=== PATIENT | male | born 1955 | race Caucasian/White ===

== ENCOUNTER 2017-03-09 19:30 | Observation (INO) | payer OTHER ==
--- NOTE | 2017-03-09 19:34 | EDPHY ---
H & P HPI/ROS: CHIEF COMPLAINT: Stroke Alert HISTORY OF PRESENT ILLNESS: The patient is a 61 year old male with history of diabetes and prior aortic valve replacement, presents via EMS as a stroke alert. The patient states he developed a headache while sitting at the computer around 3:30pm. The headache was severe and throbbing, started gradually and is localized to the left frontal region. Around 6:30pm he developed expressive aphasia. He reports difficulty with word finding and states this lasted for about 1 hour before resolving. He denies unilateral weakness. No visual changes. The patient had 1 alcoholic beverage tonight. No prior history of migraine headaches or CVA. Vitals in the field showed BP: 160/98, HR: 60, BGL: 170. REVIEW OF SYSTEMS: A comprehensive 10 point review of systems is otherwise negative aside from elements mentioned in the history of present illness. Past Medical/Surgical History: Aortic valve replacement in 2016. Hypertension, Type II DM. Social History: . Physical Exam: General Appearance: Alert, pleasant Eyes: Pupils equal and round, no conjunctival pallor or injection ENT, Mouth: Mucous membranes moist Neck: Normal inspection, no bruit Respiratory: Lungs are clear to auscultation Cardiovascular: Regular rate and rhythm, no murmur Gastrointestinal: Abdomen is soft and non-tender Neurological: Alert, oriented x3, cranial nerves II through XII intact, motor 5 /5, sensory intact to light touch, gait not assessed Skin: Warm and dry, no rash Extremities: Nontender, no pedal edema Psychiatric: Mood and affect normal Constitutional: Initial Vital Signs Temperature (C) 36.3 C 03/09/17 19:41 Heart Rate 70 03/09/17 19:41 Respiratory Rate 18 03/09/17 19:41 Blood Pressure 149/117 H 03/09/17 19:41 O2 Sat (%) 95 03/09/17 19:41 O2 Delivery Mode Room Air Allergies/Adverse Reactions: No Known Allergies Allergy (Unverified 03/09/17 19:56) Home Medications: Medication Instructions Recorded Atorvastatin Calcium [Lipitor 80 80 mg PO DAILY 03/09/17 mg] Cholecalciferol Vit D3 [Vitamin D3 500 units PO DAILY 03/09/17 (*)] Citalopram [CeleXA 20 MG] 20 mg PO DAILY 03/09/17 Cyanocobalamin [Vitamin B12 (*)] 1,000 mcg PO DAILY 03/09/17 Fluticasone Propionate [Flonase 2 sprays EACHNARE DAILY 03/09/17 Allergy Relief] Omeprazole [Prilosec 20 mg] 20 mg PO DAILY 03/09/17 metFORMIN HCL [Glucophage 1000 mg] 1,000 mg PO BIDMEAL 03/09/17 Clopidogrel Bisulfate [Plavix] 75 mg PO DAILY #30 tablet 03/10/17 Medical Decision Making - Diagnostics EKG Interpretation: EKG interpreted by me reveals normal sinus rhythm, normal axis, normal intervals , Nonspecific T abnormalities. Interpretation: abnormal EKG Imaging: Discussed imaging studies w/ scallop raker Radiologist ED Course/Re-evaluation: Patient presents as stroke alert. The patient developed gradual onset of left sided headache around 3:30 p.m. Around 6:30 p.m. the patient developed expressive aphasia that lasted for 1 hour. I met EMS on arrival and assessed the patient. No neurological deficits visualized. The patient has a negative head CT. He continues to have a left sided headache that has improved from an 8/ 10 to 5/10. He had gradual onset of headache, I do not suspect subarachnoid hemorrhage in this patient. The differential in this patient is TIA versus migraine headache. Given the risk factors for TIA, I will admit him for further evaluation. Aspirin 325 mg orally given. Repeat neurologic exam is normal and unchanged. groundwater monitoring technician revealed normal sinus rhythm throughout. Based on acute symptoms and family history, I recommend the patient be admitted for further observation. The patient and his agree with this plan. The hospitalist service was consulted for admission. Dr. Smith accepts the patient for admission. Differential Diagnosis: Headache including but not limited to CVA, TIA, subarachnoid hemorrhage, migraine headache, tension headache and infectious causes such as meningitis, pharyngitis and sinusitis. - Data Points Laboratory Results: Laboratory Results 03/09/17 19:40 03/09/17 19:40 Medications Given: Discontinued Medications Aspirin (Aspirin) 325 mg PO EDNOW ONE Stop: 03/09/17 19:54 Last Admin: 03/09/17 20:03 Dose: 325 mg Aspirin Buffered (Aspirin Ec) 81 mg PO DAILY [facility] Stop: 09/06/17 08:59 Last Admin: 03/10/17 09:44 Dose: 81 mg Atorvastatin Calcium (Lipitor) 80 mg PO DAILY [facility] Stop: 09/06/17 08:59 Last Admin: 03/10/17 09:44 Dose: 80 mg Citalopram Hydrobromide (Celexa) 20 mg PO DAILY [facility] Stop: 09/06/17 08:59 Last Admin: 03/10/17 09:44 Dose: 20 mg Fluticasone Propionate (Flonase Nasal [place]) 2 sprays EACHNARE DAILY [facility] Stop: 09/06/17 08:59 Last Admin: 03/10/17 09:45 Dose: Not Given Influenza Virus Vaccine Quadrival (Fluarix Quad [id number]) 0.5 ml IM .ONCE ONE Stop: 03/10/17 13:44 Last Admin: 03/10/17 14:00 Dose: 0.5 ml Metformin HCl (Glucophage) 1,000 mg PO BIDMEAL [facility] Stop: 09/06/17 07:59 Last Admin: 03/10/17 09:44 Dose: 1,000 mg Pantoprazole Sodium (Protonix) 40 mg PO DAILY [facility] Stop: 09/06/17 08:59 Last Admin: 03/10/17 09:45 Dose: 40 mg Departure - Departure Disposition: [facility] Inpatient Acute Clinical Impression: TIA (transient ischemic attack) Qualifiers: Transient cerebral ischemia type: unspecified Qualified Code(s): G45.9 - Transient cerebral ischemic attack, unspecified Condition: Good Report Scribed for: Patricia Hanley Report Scribed by: Avani Menendez Date of Report: 03/09/17 Time of Report: 19:34 Physician Review and Approval Statement: 03/09/17 19:34 Portions of this note were transcribed by a director medical writing. I personally performed the history, physical exam, and medical decision-making; and confirmed the accuracy of the information in the transcribed note.
--- NOTE | 2017-03-09 19:34 | EDPHY ---
H & P HPI/ROS: CHIEF COMPLAINT: Stroke Alert HISTORY OF PRESENT ILLNESS: The patient is a 61 year old male with history of diabetes and prior aortic valve replacement, presents via EMS as a stroke alert. The patient states he developed a headache while sitting at the computer around 3:30pm. The headache was severe and throbbing, started gradually and is localized to the left frontal region. Around 6:30pm he developed expressive aphasia. He reports difficulty with word finding and states this lasted for about 1 hour before resolving. He denies unilateral weakness. No visual changes. The patient had 1 alcoholic beverage tonight. No prior history of migraine headaches or CVA. Vitals in the field showed BP: 160/98, HR: 60, BGL: 170. REVIEW OF SYSTEMS: A comprehensive 10 point review of systems is otherwise negative aside from elements mentioned in the history of present illness. Past Medical/Surgical History: Aortic valve replacement in 2016. Hypertension, Type II DM. Social History: . Physical Exam: General Appearance: Alert, pleasant Eyes: Pupils equal and round, no conjunctival pallor or injection ENT, Mouth: Mucous membranes moist Neck: Normal inspection, no bruit Respiratory: Lungs are clear to auscultation Cardiovascular: Regular rate and rhythm, no murmur Gastrointestinal: Abdomen is soft and non-tender Neurological: Alert, oriented x3, cranial nerves II through XII intact, motor 5 /5, sensory intact to light touch, gait not assessed Skin: Warm and dry, no rash Extremities: Nontender, no pedal edema Psychiatric: Mood and affect normal Constitutional: Initial Vital Signs Temperature (C) 36.3 C 03/09/17 19:41 Heart Rate 70 03/09/17 19:41 Respiratory Rate 18 03/09/17 19:41 Blood Pressure 149/117 H 03/09/17 19:41 O2 Sat (%) 95 03/09/17 19:41 O2 Delivery Mode Room Air Allergies/Adverse Reactions: No Known Allergies Allergy (Unverified 03/09/17 19:56) Home Medications: Medication Instructions Recorded Atorvastatin Calcium [Lipitor 80 80 mg PO DAILY 03/09/17 mg] Cholecalciferol Vit D3 [Vitamin D3 500 units PO DAILY 03/09/17 (*)] Citalopram [CeleXA 20 MG] 20 mg PO DAILY 03/09/17 Cyanocobalamin [Vitamin B12 (*)] 1,000 mcg PO DAILY 03/09/17 Fluticasone Propionate [Flonase 2 sprays EACHNARE DAILY 03/09/17 Allergy Relief] Omeprazole [Prilosec 20 mg] 20 mg PO DAILY 03/09/17 metFORMIN HCL [Glucophage 1000 mg] 1,000 mg PO BIDMEAL 03/09/17 Clopidogrel Bisulfate [Plavix] 75 mg PO DAILY #30 tablet 03/10/17 Medical Decision Making - Diagnostics EKG Interpretation: EKG interpreted by me reveals normal sinus rhythm, normal axis, normal intervals , Nonspecific T abnormalities. Interpretation: abnormal EKG Imaging: Discussed imaging studies w/ teacher emotionally impaired Radiologist ED Course/Re-evaluation: Patient presents as stroke alert. The patient developed gradual onset of left sided headache around 3:30 p.m. Around 6:30 p.m. the patient developed expressive aphasia that lasted for 1 hour. I met EMS on arrival and assessed the patient. No neurological deficits visualized. The patient has a negative head CT. He continues to have a left sided headache that has improved from an 8/ 10 to 5/10. He had gradual onset of headache, I do not suspect subarachnoid hemorrhage in this patient. The differential in this patient is TIA versus migraine headache. Given the risk factors for TIA, I will admit him for further evaluation. Aspirin 325 mg orally given. Repeat neurologic exam is normal and unchanged. court monitor revealed normal sinus rhythm throughout. Based on acute symptoms and family history, I recommend the patient be admitted for further observation. The patient and his agree with this plan. The hospitalist service was consulted for admission. Dr. Smith accepts the patient for admission. Differential Diagnosis: Headache including but not limited to CVA, TIA, subarachnoid hemorrhage, migraine headache, tension headache and infectious causes such as meningitis, pharyngitis and sinusitis. - Data Points Laboratory Results: Laboratory Results 03/09/17 19:40 03/09/17 19:40 Medications Given: Discontinued Medications Aspirin (Aspirin) 325 mg PO EDNOW ONE Stop: 03/09/17 19:54 Last Admin: 03/09/17 20:03 Dose: 325 mg Aspirin Buffered (Aspirin Ec) 81 mg PO DAILY [facility] Stop: 09/06/17 08:59 Last Admin: 03/10/17 09:44 Dose: 81 mg Atorvastatin Calcium (Lipitor) 80 mg PO DAILY [facility] Stop: 09/06/17 08:59 Last Admin: 03/10/17 09:44 Dose: 80 mg Citalopram Hydrobromide (Celexa) 20 mg PO DAILY [facility] Stop: 09/06/17 08:59 Last Admin: 03/10/17 09:44 Dose: 20 mg Fluticasone Propionate (Flonase Nasal [place]) 2 sprays EACHNARE DAILY [facility] Stop: 09/06/17 08:59 Last Admin: 03/10/17 09:45 Dose: Not Given Influenza Virus Vaccine Quadrival (Fluarix Quad [id number]) 0.5 ml IM .ONCE ONE Stop: 03/10/17 13:44 Last Admin: 03/10/17 14:00 Dose: 0.5 ml Metformin HCl (Glucophage) 1,000 mg PO BIDMEAL [facility] Stop: 09/06/17 07:59 Last Admin: 03/10/17 09:44 Dose: 1,000 mg Pantoprazole Sodium (Protonix) 40 mg PO DAILY [facility] Stop: 09/06/17 08:59 Last Admin: 03/10/17 09:45 Dose: 40 mg Departure - Departure Disposition: [facility] Inpatient Acute Clinical Impression: TIA (transient ischemic attack) Qualifiers: Transient cerebral ischemia type: unspecified Qualified Code(s): G45.9 - Transient cerebral ischemic attack, unspecified Condition: Good Report Scribed for: Patricia Hanley Report Scribed by: Avani Menendez Date of Report: 03/09/17 Time of Report: 19:34 Physician Review and Approval Statement: 03/09/17 19:34 Portions of this note were transcribed by a medical office scheduler. I personally performed the history, physical exam, and medical decision-making; and confirmed the accuracy of the information in the transcribed note.
--- NOTE | 2017-03-09 19:34 | EDPHY ---
H & P HPI/ROS: CHIEF COMPLAINT: Stroke Alert HISTORY OF PRESENT ILLNESS: The patient is a 61 year old male with history of diabetes and prior aortic valve replacement, presents via EMS as a stroke alert. The patient states he developed a headache while sitting at the computer around 3:30pm. The headache was severe and throbbing, started gradually and is localized to the left frontal region. Around 6:30pm he developed expressive aphasia. He reports difficulty with word finding and states this lasted for about 1 hour before resolving. He denies unilateral weakness. No visual changes. The patient had 1 alcoholic beverage tonight. No prior history of migraine headaches or CVA. Vitals in the field showed BP: 160/98, HR: 60, BGL: 170. REVIEW OF SYSTEMS: A comprehensive 10 point review of systems is otherwise negative aside from elements mentioned in the history of present illness. Past Medical/Surgical History: Aortic valve replacement in 2016. Hypertension, Type II DM. Social History: . Physical Exam: General Appearance: Alert, pleasant Eyes: Pupils equal and round, no conjunctival pallor or injection ENT, Mouth: Mucous membranes moist Neck: Normal inspection, no bruit Respiratory: Lungs are clear to auscultation Cardiovascular: Regular rate and rhythm, no murmur Gastrointestinal: Abdomen is soft and non-tender Neurological: Alert, oriented x3, cranial nerves II through XII intact, motor 5 /5, sensory intact to light touch, gait not assessed Skin: Warm and dry, no rash Extremities: Nontender, no pedal edema Psychiatric: Mood and affect normal Constitutional: Initial Vital Signs Temperature (C) 36.3 C 03/09/17 19:41 Heart Rate 70 03/09/17 19:41 Respiratory Rate 18 03/09/17 19:41 Blood Pressure 149/117 H 03/09/17 19:41 O2 Sat (%) 95 03/09/17 19:41 O2 Delivery Mode Room Air Allergies/Adverse Reactions: No Known Allergies Allergy (Unverified 03/09/17 19:56) Home Medications: Medication Instructions Recorded Atorvastatin Calcium [Lipitor 80 80 mg PO DAILY 03/09/17 mg] Cholecalciferol Vit D3 [Vitamin D3 500 units PO DAILY 03/09/17 (*)] Citalopram [CeleXA 20 MG] 20 mg PO DAILY 03/09/17 Cyanocobalamin [Vitamin B12 (*)] 1,000 mcg PO DAILY 03/09/17 Fluticasone Propionate [Flonase 2 sprays EACHNARE DAILY 03/09/17 Allergy Relief] Omeprazole [Prilosec 20 mg] 20 mg PO DAILY 03/09/17 metFORMIN HCL [Glucophage 1000 mg] 1,000 mg PO BIDMEAL 03/09/17 Clopidogrel Bisulfate [Plavix] 75 mg PO DAILY #30 tablet 03/10/17 Medical Decision Making - Diagnostics EKG Interpretation: EKG interpreted by me reveals normal sinus rhythm, normal axis, normal intervals , Nonspecific T abnormalities. Interpretation: abnormal EKG Imaging: Discussed imaging studies w/ call center associate Radiologist ED Course/Re-evaluation: Patient presents as stroke alert. The patient developed gradual onset of left sided headache around 3:30 p.m. Around 6:30 p.m. the patient developed expressive aphasia that lasted for 1 hour. I met EMS on arrival and assessed the patient. No neurological deficits visualized. The patient has a negative head CT. He continues to have a left sided headache that has improved from an 8/ 10 to 5/10. He had gradual onset of headache, I do not suspect subarachnoid hemorrhage in this patient. The differential in this patient is TIA versus migraine headache. Given the risk factors for TIA, I will admit him for further evaluation. Aspirin 325 mg orally given. Repeat neurologic exam is normal and unchanged. personnel monitor revealed normal sinus rhythm throughout. Based on acute symptoms and family history, I recommend the patient be admitted for further observation. The patient and his agree with this plan. The hospitalist service was consulted for admission. Dr. Smith accepts the patient for admission. Differential Diagnosis: Headache including but not limited to CVA, TIA, subarachnoid hemorrhage, migraine headache, tension headache and infectious causes such as meningitis, pharyngitis and sinusitis. - Data Points Laboratory Results: Laboratory Results 03/09/17 19:40 03/09/17 19:40 Medications Given: Discontinued Medications Aspirin (Aspirin) 325 mg PO EDNOW ONE Stop: 03/09/17 19:54 Last Admin: 03/09/17 20:03 Dose: 325 mg Aspirin Buffered (Aspirin Ec) 81 mg PO DAILY [facility] Stop: 09/06/17 08:59 Last Admin: 03/10/17 09:44 Dose: 81 mg Atorvastatin Calcium (Lipitor) 80 mg PO DAILY [facility] Stop: 09/06/17 08:59 Last Admin: 03/10/17 09:44 Dose: 80 mg Citalopram Hydrobromide (Celexa) 20 mg PO DAILY [facility] Stop: 09/06/17 08:59 Last Admin: 03/10/17 09:44 Dose: 20 mg Fluticasone Propionate (Flonase Nasal [place]) 2 sprays EACHNARE DAILY [facility] Stop: 09/06/17 08:59 Last Admin: 03/10/17 09:45 Dose: Not Given Influenza Virus Vaccine Quadrival (Fluarix Quad [id number]) 0.5 ml IM .ONCE ONE Stop: 03/10/17 13:44 Last Admin: 03/10/17 14:00 Dose: 0.5 ml Metformin HCl (Glucophage) 1,000 mg PO BIDMEAL [facility] Stop: 09/06/17 07:59 Last Admin: 03/10/17 09:44 Dose: 1,000 mg Pantoprazole Sodium (Protonix) 40 mg PO DAILY [facility] Stop: 09/06/17 08:59 Last Admin: 03/10/17 09:45 Dose: 40 mg Departure - Departure Disposition: [facility] Inpatient Acute Clinical Impression: TIA (transient ischemic attack) Qualifiers: Transient cerebral ischemia type: unspecified Qualified Code(s): G45.9 - Transient cerebral ischemic attack, unspecified Condition: Good Report Scribed for: Patricia Hanley Report Scribed by: Avani Menendez Date of Report: 03/09/17 Time of Report: 19:34 Physician Review and Approval Statement: 03/09/17 19:34 Portions of this note were transcribed by a remote medical coder. I personally performed the history, physical exam, and medical decision-making; and confirmed the accuracy of the information in the transcribed note.
[2017-03-09 19:49] LABS: PLATELET COUNT 202 10^3/uL (150-400)
[2017-03-09] MEDS ORDERED: ASPIRIN 81 MG CHEWABLE TAB PO ONE (19:53)
--- NOTE | 2017-03-09 19:58 | CPEKG ---
Heart Rate: 71 RR Interval: 845 P-R Interval: 168 QRSD Interval: 88 QT Interval: 416 QTC Interval: 453 P [place]: 61 QRS [place]: 37 T Wave [place]: 103 EKG Severity - ABNORMAL ECG - EKG Impression: SINUS RHYTHM EKG Impression: NONSPECIFIC T ABNORMALITIES, LATERAL LEADS Electronically Signed By: Patricia Hanley 11-Mar-2017 20:43:49
--- NOTE | 2017-03-09 19:58 | CPEKG ---
Heart Rate: 71 RR Interval: 845 P-R Interval: 168 QRSD Interval: 88 QT Interval: 416 QTC Interval: 453 P [place]: 61 QRS [place]: 37 T Wave [place]: 103 EKG Severity - ABNORMAL ECG - EKG Impression: SINUS RHYTHM EKG Impression: NONSPECIFIC T ABNORMALITIES, LATERAL LEADS Electronically Signed By: Patricia Hanley 11-Mar-2017 20:43:49
[2017-03-09] MEDS ORDERED: ONDANSETRON 4 MG/2 ML VIAL IVP PRN (21:35)
[2017-03-09] MEDS ORDERED: ACETAMINOPHEN 325 MG TAB PO PRN (21:35)
[2017-03-09] MEDS ORDERED: ONDANSETRON DISINTEGRATING 4 MG TAB PO PRN (21:35)
--- NOTE | 2017-03-10 00:19 | GHP ---
[f rep st] HISTORY AND PHYSICAL DATE OF ADMISSION: 03/09/2017 CHIEF COMPLAINT: Headache, expressive aphasia. HISTORY OF PRESENT ILLNESS: A 61-year-old male with a history of a bovine aortic valve replacement, hyperlipidemia, but otherwise fairly healthy. Says he has been under lot of stress lately and was do ing his 4-hour online course, and towards the end of it, developed severe headache on the left side o f his head that was sharp, non-throbbing. There was no light sensitivity. Sometime afterwards, he t hen developed expressive aphasia. This lasted for about probably an hour, but was significantly reso lving by the time he came to the emergency department and is resolved at this point. He has never poole d any symptoms like this before. No numbness, tingling, generalized weakness. No fevers or chills. REVIEW OF SYSTEMS: A 10-point review of systems was obtained, and other than stated was negative. PAST MEDICAL HISTORY: 1. History of a bovine aortic valve replacement at [facility]. 2. Hyperlipidemia. 3. Anxiety. 4. Type 2 diabetes. 5. GERD. MEDICATIONS: Reviewed, include aspirin. SOCIAL HISTORY: No smoking or excessive alcohol. Works as an electrical engineering intern. He is having a significant amount of stress lately. FAMILY HISTORY: Mother had a stroke, as well as sister. PHYSICAL EXAMINATION: VITAL SIGNS: Afebrile, blood pressure is 104/82, heart rate 92, oxygen satura tion 96% on room air. GENERAL: The patient is well developed, no apparent distress. HEENT: Nonict teresa sclerae. Extraocular muscles intact. Moist mucous membranes. NECK: Supple. No thyromegaly. LUNGS: Good effort. Clear to auscultation bilaterally. CARDIOVASCULAR: Regular rate and rhythm. No murmurs, gallops. ABDOMEN: Positive bowel sounds. Soft, nontender, nondistended. No hepatospl enomegaly. EXTREMITIES: No clubbing, cyanosis, or edema. SKIN: Without rash; dry, intact. NEURO: Alert and oriented x3. Cranial nerves 2-12 are intact. 5/5 strength in all 4 extremities. Speech is fluent. PSYCHIATRIC: Normal mood and affect. LABORATORY DATA: Chemistry is normal. CBC is essentially normal. CT scan of the head shows no bleed. EKG shows normal sinus rhythm. ASSESSMENT: This is a 61-year-old male presenting with transient ischemic attack versus atypical janna archana. PLAN: 1. Possible TIA. Patient will be monitored on the floor. Will get a carotid ultrasound and echocar diogram. He has already been given aspirin, which we will continue. Neurology to see the patient in the morning. Because of his previous history of heart surgery, he is at high risk of atrial fibrill ation and consider outpatient Holter monitoring on discharge. 2. History of bovine aortic valve. Will continue aspirin. 3. Anxiety. Continue medications. 4. Hyperlipidemia. /[id number]/MODL
[2017-03-10] MEDS ORDERED: metFORMIN HCL 500 MG TAB PO SCH (08:00)
[2017-03-10] MEDS ORDERED: PANTOPRAZOLE SODIUM 40 MG TAB PO SCH (09:00)
[2017-03-10] MEDS ORDERED: CITALOPRAM 20 MG TAB PO SCH (09:00)
[2017-03-10] MEDS ORDERED: FLUTICASONE NASAL 120 SPRAYS/16 GM MDI EACHNARE SCH (09:00)
[2017-03-10] MEDS ORDERED: ASPIRIN EC 81 MG TAB PO SCH (09:00)
[2017-03-10] MEDS ORDERED: ATORVASTATIN CALCIUM 40 MG TAB PO SCH (09:00)
[2017-03-10 11:21] VITALS: BP 159/83; PULSE 75; RESP 14; TEMP 97.5; O2SAT 91
--- NOTE | 2017-03-10 11:25 | GCON ---
[f rep st] CONSULTATION NEUROLOGIC CONSULTATION REFERRING PHYSICIAN: Eva Smith MD HISTORY: The patient is a 61-year-old gentleman who I am asked to see in neurologic consultation reg eileen a possible TIA. His chief complaint was severe headache yesterday starting around 5:00 p.m. o r so. Within approximately 30 minutes, he was aware that he was having trouble with verbal expressio n. He was not slurring his words, but using incorrect words when he was speaking to his and she says he was saying things that did not really make much sense. Sometimes it was as simple as word s ubstitution, other times a little more trouble with the language, but that eventually resolved after approximately 2 hours they would estimate. The headache was characterized by quite severe pain over the left side of the head and the worst headache he had ever had. He did not have nausea or vomiting . No change in vision. No focal numbness or weakness. He has never had this before. Some of the p ain was repetitive and very sharp in the left side of the head. He did not describe nasal congestion on that side or reddening of the eye or excessive lacrimation. No change in bowel or bladder functi on. He came to the hospital as a stroke alert and underwent acute head CT that was unremarkable. At the resolution of symptoms, it was felt he would not be a candidate for tPA, so he was admitted and barrington nued on his baby aspirin. He is otherwise doing well and feels completely back to himself. REVIEW OF SYSTEMS: Otherwise, a 10-point review of systems was completed and unremarkable except for that noted above. PAST MEDICAL HISTORY: Is notable for aortic valve replacement, hyperlipidemia, anxiety, type 2 diabe ariadna, reflux. FAMILY HISTORY: Mother had stroke. His sister did too. SOCIAL HISTORY: He is a previous smoker, but stopped about 2 years ago. He does not drink excessive alcohol. 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 MEDICATIONS: When he came to the hospital are fluticasone for seasonal allergy, vitamin D, Glucophag e, Prilosec, vitamin B12, aspirin 81 mg daily, Celexa and Lipitor 80 mg daily. ALLERGIES: No allergies. PHYSICAL EXAM: VITAL SIGNS: Temperature 36.7, pulse of 69, respirations 16, blood pressure 146/87. His admission blood pressure was around 149/117. His high systolic pressure has been in the mid upp er 160s. He has maintained sinus rhythm. GENERAL: He is well developed in no acute distress. EYES: Clear. NECK: Supple with no bruits or masses. CARDIAC: Regular rate and rhythm with no murmur. NEUROLOGIC: He is awake, alert and atten tive, with clear and fluent speech. He is oriented to person, place, time and general situation. Re cent and remote memory are preserved with normal attention span and concentration. The language is n ormal now. He has a good general fund of knowledge. Pupils 2 mm and reactive. No funduscopic abnor malities. Visual lopes are full. Extraocular movements are intact. Normal facial sensation and st rength. Hearing is preserved. Palate elevates symmetrically and tongue protrudes midline. No weakn ess of head turning or shoulder shrug. Motor examination: Normal muscle bulk and tone, 5/5 strength and no abnormal movements in the upper or lower extremities. Sensation is preserved for temperature and light touch. Reflexes are 1+ and symmetric. No ataxia on ojoyxx-qg-jnex. LABORATORY STUDIES: I reviewed the laboratory studies showing normal CBC and electrolytes. The hennessy tid ultrasound shows no hemodynamically significant stenosis. Echocardiogram has been performed, but results are pending. IMPRESSION: The patient has an NIH stroke scale of 0. He had an episode yesterday of severe headach e associated with development of some expressive aphasia that subsequently resolved completely and he is back to baseline. The differential consideration would include transient ischemic attack with mu ltiple risk factors as well as complex migraine/cluster type headache with a very unusual aura. Pollack geovanny, he does not have a history of migraine and that is not the likely diagnosis. He did not have se elsa hypertension to suggest a hypertensive encephalopathy. This is not consistent with a seizure ph enomenon, but there was no intoxication or evidence of acute encephalopathy. I think we have to view this as an aspirin failure and would recommend addition of Plavix either here or when he goes to [facility] for followup to make decisions regarding that. A more prolonged cardiac monitoring to look for o ccult atrial fibrillation would also be a reasonable consideration, but this will all be followed up through [facility]. He is already on statin therapy for secondary stroke prophylaxis. I talked to him a bout risk factors of stroke and modification and I told him to ease back into work gradually, but he does not have any other formal restrictions. /[id number]/MODL
--- NOTE | 2017-03-10 12:25 | ASMTCMCOM ---
CM Note CM Note Notes: Chart reivewed. Pt admitted for TOA symptoms resolved. CT report normal. DC Independently when medically stable. CM avaialbe to follow if needs arise. Date Signed: 03/10/2017 12:25 PM Electronically Signed By:Ana Paula Barraza RN
--- NOTE | 2017-03-10 13:35 | ECHO ---
[email or web address] [address] [address] Main: [phone] Fax: Transthoracic Echocardiogram Name: SUNNI GERBER MR#: [id number] Study Date: 03/10/2017 Study Time: 08:45 AM Date of : 1955 Age: 61 year(s) Height: 170.2 cm (67 in.) Weight: 77.11 kg (170 lb.) BSA: 1.89 m2 Gender: Male Examination: Echo Indication: TIA/AVR 2-17 Image Quality: Contrast: Requested by: Eva Smith BP: / Heart Rate: Rhythm: Indication: TIA/AVR 2-17 Procedure Staff Waxer: Lindsay Lloyd Physician: Cisco Alcantar Requesting Provider: Conclusions: Normal size left ventricle. Mild concentric LV hypertrophy. EF is 69 %. No regional wall motion abnormality. Trivial mitral valve regurgitation. The aortic valve is a bioprosthesis. AV max PG is 23mmHG. AV mean PG is 12mmHG.. Trivial tricuspid valve regurgitation. No valvular vegetations. Consider AMBROCIO if clinically indicated. Measurements: Chambers Valvular Assessment AV/MV Valvular Assessment TV/PV Normal Normal Normal Name Value Range Name Value Range Name Value Range Ao Monica (MM): 3.3 cm (2.2 cm-3.7 AV meanP mmHg ( - ) cm) MV E Vmax: 0.75 m/s ( - ) IVSd (2D): 0.8 cm (0.6 cm-1.1 MV A Vmax: 0.67 m/s ( - ) cm) MV E/A: 1.12 ( - ) LVDd (2D): 4.2 cm (4.2 cm-5.9 cm) LVDs (2D): 2.5 cm (2.1 cm-4 cm) LVPWd (2D): 1.0 cm (0.6 cm-1 cm) LVEF (MOD4): 69 % (>=55 %) Continued Measurements: Chambers Valvular Assessment AV/MV Name Value Name Value Patient: SUNNI GERBER Study Date: 03/10/2017 Page 1 of 2 08:45 AM LADs: 3.8 cm MV E' Septal: 0.06 m/s LADs Lon.9 cm MV E/E' Septal: 13.30 LA Area: 21.0 cm2 MV E/E' Lateral: 11.80 Additional Vessels Name Value Ao Ascendin.3 cm Findings: Left Ventricle: Normal size left ventricle. Mild concentric LV hypertrophy. Normal global systolic LV function. EF is 69 %. No regional wall motion abnormality. Right Ventricle: Normal size right ventricle. Left Atrium: The left atrium is normal in size. Right Atrium: The right atrium is normal in size. Mitral Valve: The mitral valve is normal in appearance and function. Trivial mitral valve regurgitation. Aortic Valve: The aortic valve is a bioprosthesis. AV max PG is 23mmHG. AV mean PG is 12mmHG.. Tricuspid Valve: The tricuspid valve is normal in appearance and function. Trivial tricuspid valve regurgitation. Pulmonic Valve: The pulmonic valve is normal in appearance and function. Aorta: The aorta is normal. Pericardium: No pericardial effusion. (No Signature Object) Patient: SUNNI GERBER Study Date: 03/10/2017 Page 2 of 2 08:45 AM [id number]
--- NOTE | 2017-03-10 13:35 | ECHO ---
[email or web address] [address] [address] Main: [phone] Fax: Transthoracic Echocardiogram Name: SUNNI GERBER MR#: [id number] Study Date: 03/10/2017 Study Time: 08:45 AM Date of : 1955 Age: 61 year(s) Height: 170.2 cm (67 in.) Weight: 77.11 kg (170 lb.) BSA: 1.89 m2 Gender: Male Examination: Echo Indication: TIA/AVR 2-17 Image Quality: Contrast: Requested by: Eva Smith BP: / Heart Rate: Rhythm: Indication: TIA/AVR 2-17 Procedure Staff Director Of Product Development: Lindsay Lloyd Physician: Cisco Alcantar Requesting Provider: Conclusions: Normal size left ventricle. Mild concentric LV hypertrophy. EF is 69 %. No regional wall motion abnormality. Trivial mitral valve regurgitation. The aortic valve is a bioprosthesis. AV max PG is 23mmHG. AV mean PG is 12mmHG.. Trivial tricuspid valve regurgitation. No valvular vegetations. Consider AMBROCIO if clinically indicated. Measurements: Chambers Valvular Assessment AV/MV Valvular Assessment TV/PV Normal Normal Normal Name Value Range Name Value Range Name Value Range Ao Monica (MM): 3.3 cm (2.2 cm-3.7 AV meanP mmHg ( - ) cm) MV E Vmax: 0.75 m/s ( - ) IVSd (2D): 0.8 cm (0.6 cm-1.1 MV A Vmax: 0.67 m/s ( - ) cm) MV E/A: 1.12 ( - ) LVDd (2D): 4.2 cm (4.2 cm-5.9 cm) LVDs (2D): 2.5 cm (2.1 cm-4 cm) LVPWd (2D): 1.0 cm (0.6 cm-1 cm) LVEF (MOD4): 69 % (>=55 %) Continued Measurements: Chambers Valvular Assessment AV/MV Name Value Name Value Patient: SUNNI GERBER Study Date: 03/10/2017 Page 1 of 2 08:45 AM LADs: 3.8 cm MV E' Septal: 0.06 m/s LADs Lon.9 cm MV E/E' Septal: 13.30 LA Area: 21.0 cm2 MV E/E' Lateral: 11.80 Additional Vessels Name Value Ao Ascendin.3 cm Findings: Left Ventricle: Normal size left ventricle. Mild concentric LV hypertrophy. Normal global systolic LV function. EF is 69 %. No regional wall motion abnormality. Right Ventricle: Normal size right ventricle. Left Atrium: The left atrium is normal in size. Right Atrium: The right atrium is normal in size. Mitral Valve: The mitral valve is normal in appearance and function. Trivial mitral valve regurgitation. Aortic Valve: The aortic valve is a bioprosthesis. AV max PG is 23mmHG. AV mean PG is 12mmHG.. Tricuspid Valve: The tricuspid valve is normal in appearance and function. Trivial tricuspid valve regurgitation. Pulmonic Valve: The pulmonic valve is normal in appearance and function. Aorta: The aorta is normal. Pericardium: No pericardial effusion. (No Signature Object) Patient: SUNNI GERBER Study Date: 03/10/2017 Page 2 of 2 08:45 AM [id number]
--- NOTE | 2017-03-10 13:35 | ECHO ---
[email or web address] [address] [address] Main: [phone] Fax: Transthoracic Echocardiogram Name: SUNNI GERBER MR#: [id number] Study Date: 03/10/2017 Study Time: 08:45 AM Date of : 1955 Age: 61 year(s) Height: 170.2 cm (67 in.) Weight: 77.11 kg (170 lb.) BSA: 1.89 m2 Gender: Male Examination: Echo Indication: TIA/AVR 2-17 Image Quality: Contrast: Requested by: Eva Smith BP: / Heart Rate: Rhythm: Indication: TIA/AVR 2-17 Procedure Staff Bi Data Architect: Lindsay Lloyd Physician: Cisco Alcantar Requesting Provider: Conclusions: Normal size left ventricle. Mild concentric LV hypertrophy. EF is 69 %. No regional wall motion abnormality. Trivial mitral valve regurgitation. The aortic valve is a bioprosthesis. AV max PG is 23mmHG. AV mean PG is 12mmHG.. Trivial tricuspid valve regurgitation. No valvular vegetations. Consider AMBROCIO if clinically indicated. Measurements: Chambers Valvular Assessment AV/MV Valvular Assessment TV/PV Normal Normal Normal Name Value Range Name Value Range Name Value Range Ao Monica (MM): 3.3 cm (2.2 cm-3.7 AV meanP mmHg ( - ) cm) MV E Vmax: 0.75 m/s ( - ) IVSd (2D): 0.8 cm (0.6 cm-1.1 MV A Vmax: 0.67 m/s ( - ) cm) MV E/A: 1.12 ( - ) LVDd (2D): 4.2 cm (4.2 cm-5.9 cm) LVDs (2D): 2.5 cm (2.1 cm-4 cm) LVPWd (2D): 1.0 cm (0.6 cm-1 cm) LVEF (MOD4): 69 % (>=55 %) Continued Measurements: Chambers Valvular Assessment AV/MV Name Value Name Value Patient: SUNNI GERBER Study Date: 03/10/2017 Page 1 of 2 08:45 AM LADs: 3.8 cm MV E' Septal: 0.06 m/s LADs Lon.9 cm MV E/E' Septal: 13.30 LA Area: 21.0 cm2 MV E/E' Lateral: 11.80 Additional Vessels Name Value Ao Ascendin.3 cm Findings: Left Ventricle: Normal size left ventricle. Mild concentric LV hypertrophy. Normal global systolic LV function. EF is 69 %. No regional wall motion abnormality. Right Ventricle: Normal size right ventricle. Left Atrium: The left atrium is normal in size. Right Atrium: The right atrium is normal in size. Mitral Valve: The mitral valve is normal in appearance and function. Trivial mitral valve regurgitation. Aortic Valve: The aortic valve is a bioprosthesis. AV max PG is 23mmHG. AV mean PG is 12mmHG.. Tricuspid Valve: The tricuspid valve is normal in appearance and function. Trivial tricuspid valve regurgitation. Pulmonic Valve: The pulmonic valve is normal in appearance and function. Aorta: The aorta is normal. Pericardium: No pericardial effusion. (No Signature Object) Patient: SUNNI GERBER Study Date: 03/10/2017 Page 2 of 2 08:45 AM [id number]
[2017-03-10] MEDS ORDERED: FLU VACC QS 2017-18 (3YR+)/PF 0.5 ML SYR (FLUARIX QUAD) IM ONE (13:43)
--- NOTE | 2017-03-10 16:19 | ASDISCHSUM ---
Discharge Information Plan Status:Home with No Needs Medically Cleared to Leave: Discharge Date:03/10/2017 03:12 PM CM D/C Disposition:Home, Routine, Self-Care ADT D/C Disposition:Home, Routine, Self-Care Projected Discharge Date:03/10/2017 03:12 PM Transportation at D/C:Family Discharge Delay Reason: Follow-Up Date:03/10/2017 03:12 PM Discharge Slot: Final Diagnosis: Placement Information Patient Contact Information Contact Name:SOLO Relationship: Address:[address] City:[place] Alternate Phone: [facility]/Zip Code:[place] [address] Email: Financial Information Financial Class:HMO and PPO Plans Primary Plan Desc:[facility] Primary Plan Number:[id number] Secondary Plan Desc: Secondary Plan Number: Assessment Information LACE LACE Length of stay for Answers: 1 day current admission Acuity / Level of Care Answers: Was the patient admitted to hospital via the emergency department? Yes: Emergency dept visits in Answers: 1 last 6 months Score: 5 Date Signed: 03/10/2017 12:22 PM Electronically Signed By:Ana Paula Barraza RN [facility] CM Progress Note CM Note CM Note Notes: Chart reivewed. Pt admitted for TOA symptoms resolved. CT report normal. DC Independently when medically stable. CM avaialbe to follow if needs arise. Date Signed: 03/10/2017 12:25 PM Electronically Signed By:Ana Paula Barraza RN Intervention Information
--- NOTE | 2017-03-10 16:19 | ASDISCHSUM ---
Discharge Information Plan Status:Home with No Needs Medically Cleared to Leave: Discharge Date:03/10/2017 03:12 PM CM D/C Disposition:Home, Routine, Self-Care ADT D/C Disposition:Home, Routine, Self-Care Projected Discharge Date:03/10/2017 03:12 PM Transportation at D/C:Family Discharge Delay Reason: Follow-Up Date:03/10/2017 03:12 PM Discharge Slot: Final Diagnosis: Placement Information Patient Contact Information Contact Name:SOLO Relationship: Address:[address] City:[place] Alternate Phone: [facility]/Zip Code:[place] [address] Email: Financial Information Financial Class:HMO and PPO Plans Primary Plan Desc:[facility] Primary Plan Number:[id number] Secondary Plan Desc: Secondary Plan Number: Assessment Information LACE LACE Length of stay for Answers: 1 day current admission Acuity / Level of Care Answers: Was the patient admitted to hospital via the emergency department? Yes: Emergency dept visits in Answers: 1 last 6 months Score: 5 Date Signed: 03/10/2017 12:22 PM Electronically Signed By:Ana Paula Barraza RN [facility] CM Progress Note CM Note CM Note Notes: Chart reivewed. Pt admitted for TOA symptoms resolved. CT report normal. DC Independently when medically stable. CM avaialbe to follow if needs arise. Date Signed: 03/10/2017 12:25 PM Electronically Signed By:Ana Paula Barraza RN Intervention Information
--- NOTE | 2017-03-10 16:19 | ASDISCHSUM ---
Discharge Information Plan Status:Home with No Needs Medically Cleared to Leave: Discharge Date:03/10/2017 03:12 PM CM D/C Disposition:Home, Routine, Self-Care ADT D/C Disposition:Home, Routine, Self-Care Projected Discharge Date:03/10/2017 03:12 PM Transportation at D/C:Family Discharge Delay Reason: Follow-Up Date:03/10/2017 03:12 PM Discharge Slot: Final Diagnosis: Placement Information Patient Contact Information Contact Name:SOLO Relationship: Address:[address] City:[place] Alternate Phone: [facility]/Zip Code:[place] [address] Email: Financial Information Financial Class:HMO and PPO Plans Primary Plan Desc:[facility] Primary Plan Number:[id number] Secondary Plan Desc: Secondary Plan Number: Assessment Information LACE LACE Length of stay for Answers: 1 day current admission Acuity / Level of Care Answers: Was the patient admitted to hospital via the emergency department? Yes: Emergency dept visits in Answers: 1 last 6 months Score: 5 Date Signed: 03/10/2017 12:22 PM Electronically Signed By:Ana Paula Barraza RN [facility] CM Progress Note CM Note CM Note Notes: Chart reivewed. Pt admitted for TOA symptoms resolved. CT report normal. DC Independently when medically stable. CM avaialbe to follow if needs arise. Date Signed: 03/10/2017 12:25 PM Electronically Signed By:Ana Paula Barraza RN Intervention Information
--- NOTE | 2017-03-10 20:28 | GDS ---
[f rep st] DISCHARGE SUMMARY DISCHARGE DIAGNOSES: 1. Transient ischemic attack with complete resolution of symptoms. 2. History of bovine aortic valve. 3. Anxiety. 4. Hyperlipidemia. 5. Pulmonary nodules. IMAGING STUDIES/PROCEDURES: 1. Head CT showed microvascular ischemic change. No evidence of acute stroke or hemorrhage. 2. Chest x-ray showed multiple bilateral small pulmonary nodules of undetermined chronicity or calci fication status. 3. Carotid Doppler ultrasound showed mild nfa-fxje-dtqklala carotid plaque. 4. Echocardiogram showed normal left ventricular ejection fraction of 69% with no wall motion abnorm alities and no evidence of thrombus. Bioprosthetic aortic valve is noted with a maximum pressure gra dient of 23 and mean pressure gradient of 12 over the valve. HISTORY: For details, please see the history and physical dated March 09, 2017. In brief, the butch rosenberg is a 61-year-old male with a recent history of bovine aortic valve replacement who presents to [facility] emergency department with headache and aphasia symptoms which resolved within 4 hours of onset. Ros mendez was admitted to the hospital for further evaluation. HOSPITAL COURSE: The patient was admitted to the medical-surgical unit. Neurology consultation was obtained. His symptoms are consistent with TIA, though it is unclear if this could have been a heada stevenson or a migraine variant with neurologic symptoms. Given his risk factors, TIA workup was performed with imaging studies described above. He was normotensive. There was no evidence of cardiac arrhyt hmia on telemetry, but it is recommended that he follow up with his [place] flame cutter for considera tion of a long-term cardiac event monitor given his risk for atrial fibrillation with a recent valve replacement. Since he has had a TIA event on aspirin, we will change this to Plavix and again recomm end he follow up with his [place] primary care physician for referral to Neurology to discuss this fur ther. In addition, he will need primary care followup for repeat imaging of his scattered pulmonary nodules of unclear chronicity, and I will defer to his PCP to address this and future imaging as need ed. The patient's symptoms completely resolved and did not recur overnight in the hospital. He is hemody namically stable and wishes to go home. DISPOSITION: Patient is discharged home in stable condition. FOLLOWUP: The patient is to follow up at his primary care physician's office at [place] for referral to Cardiology and Neurology. DISCHARGE MEDICATIONS: Please see [employer] for completed outpatient medication list. New medication s on discharge include Plavix 75 mg p.o. daily to be taken instead of aspirin and to be further addre ssed by outpatient Neurology followup. In addition, he will need a referral to Cardiology for cardiac event monitor as well as followup ches t imaging for surveillance of his pulmonary nodules. /[id number]/MODL
--- NOTE | 2017-03-10 20:28 | GDS ---
[f rep st] DISCHARGE SUMMARY DISCHARGE DIAGNOSES: 1. Transient ischemic attack with complete resolution of symptoms. 2. History of bovine aortic valve. 3. Anxiety. 4. Hyperlipidemia. 5. Pulmonary nodules. IMAGING STUDIES/PROCEDURES: 1. Head CT showed microvascular ischemic change. No evidence of acute stroke or hemorrhage. 2. Chest x-ray showed multiple bilateral small pulmonary nodules of undetermined chronicity or calci fication status. 3. Carotid Doppler ultrasound showed mild uaw-kwou-kbsarroe carotid plaque. 4. Echocardiogram showed normal left ventricular ejection fraction of 69% with no wall motion abnorm alities and no evidence of thrombus. Bioprosthetic aortic valve is noted with a maximum pressure gra dient of 23 and mean pressure gradient of 12 over the valve. HISTORY: For details, please see the history and physical dated March 09, 2017. In brief, the butch rosenberg is a 61-year-old male with a recent history of bovine aortic valve replacement who presents to [facility] emergency department with headache and aphasia symptoms which resolved within 4 hours of onset. Ros mendez was admitted to the hospital for further evaluation. HOSPITAL COURSE: The patient was admitted to the medical-surgical unit. Neurology consultation was obtained. His symptoms are consistent with TIA, though it is unclear if this could have been a heada stevenson or a migraine variant with neurologic symptoms. Given his risk factors, TIA workup was performed with imaging studies described above. He was normotensive. There was no evidence of cardiac arrhyt hmia on telemetry, but it is recommended that he follow up with his [place] agriculture mechanic for considera tion of a long-term cardiac event monitor given his risk for atrial fibrillation with a recent valve replacement. Since he has had a TIA event on aspirin, we will change this to Plavix and again recomm end he follow up with his [place] primary care physician for referral to Neurology to discuss this fur ther. In addition, he will need primary care followup for repeat imaging of his scattered pulmonary nodules of unclear chronicity, and I will defer to his PCP to address this and future imaging as need ed. The patient's symptoms completely resolved and did not recur overnight in the hospital. He is hemody namically stable and wishes to go home. DISPOSITION: Patient is discharged home in stable condition. FOLLOWUP: The patient is to follow up at his primary care physician's office at [place] for referral to Cardiology and Neurology. DISCHARGE MEDICATIONS: Please see [facility] for completed outpatient medication list. New medication s on discharge include Plavix 75 mg p.o. daily to be taken instead of aspirin and to be further addre ssed by outpatient Neurology followup. In addition, he will need a referral to Cardiology for cardiac event monitor as well as followup ches t imaging for surveillance of his pulmonary nodules. /[id number]/MODL
--- NOTE | 2017-03-10 20:28 | GDS ---
[f rep st] DISCHARGE SUMMARY DISCHARGE DIAGNOSES: 1. Transient ischemic attack with complete resolution of symptoms. 2. History of bovine aortic valve. 3. Anxiety. 4. Hyperlipidemia. 5. Pulmonary nodules. IMAGING STUDIES/PROCEDURES: 1. Head CT showed microvascular ischemic change. No evidence of acute stroke or hemorrhage. 2. Chest x-ray showed multiple bilateral small pulmonary nodules of undetermined chronicity or calci fication status. 3. Carotid Doppler ultrasound showed mild lkh-nqvm-zvsolynd carotid plaque. 4. Echocardiogram showed normal left ventricular ejection fraction of 69% with no wall motion abnorm alities and no evidence of thrombus. Bioprosthetic aortic valve is noted with a maximum pressure gra dient of 23 and mean pressure gradient of 12 over the valve. HISTORY: For details, please see the history and physical dated March 09, 2017. In brief, the butch rosenberg is a 61-year-old male with a recent history of bovine aortic valve replacement who presents to [facility] emergency department with headache and aphasia symptoms which resolved within 4 hours of onset. Ros mendez was admitted to the hospital for further evaluation. HOSPITAL COURSE: The patient was admitted to the medical-surgical unit. Neurology consultation was obtained. His symptoms are consistent with TIA, though it is unclear if this could have been a heada stevenson or a migraine variant with neurologic symptoms. Given his risk factors, TIA workup was performed with imaging studies described above. He was normotensive. There was no evidence of cardiac arrhyt hmia on telemetry, but it is recommended that he follow up with his [facility] [employer] work inspector for considera tion of a long-term cardiac event monitor given his risk for atrial fibrillation with a recent valve replacement. Since he has had a TIA event on aspirin, we will change this to Plavix and again recomm end he follow up with his [place] primary care physician for referral to Neurology to discuss this fur ther. In addition, he will need primary care followup for repeat imaging of his scattered pulmonary nodules of unclear chronicity, and I will defer to his PCP to address this and future imaging as need ed. The patient's symptoms completely resolved and did not recur overnight in the hospital. He is hemody namically stable and wishes to go home. DISPOSITION: Patient is discharged home in stable condition. FOLLOWUP: The patient is to follow up at his primary care physician's office at [place] for referral to Cardiology and Neurology. DISCHARGE MEDICATIONS: Please see [facility] for completed outpatient medication list. New medication s on discharge include Plavix 75 mg p.o. daily to be taken instead of aspirin and to be further addre ssed by outpatient Neurology followup. In addition, he will need a referral to Cardiology for cardiac event monitor as well as followup ches t imaging for surveillance of his pulmonary nodules. /[id number]/MODL
== END 2017-03-10 15:12 | disposition home or self-care (01) ==
LOC: EDUNIT# → F3N 20:58
PROVIDERS: ADMIT Internal Medicine; ATTEND Internal Medicine
CPT/HCPCS: 70450; 71010; 90471; 93005; 93306; 93880; G0378; 82947-QW; G0008